=== PATIENT | female | born 1960 | race Caucasian/White ===

== ENCOUNTER 2024-05-06 07:03 | Emergency (ER) | payer MEDICARE, OTHER ==
[~2024-05-06] VITALS: Ht 170.2 cm; Wt 104.5 kg
[2024-05-06] MEDS ORDERED: SYNT125T PO (07:14)
[2024-05-06] MEDS: ONDANSETRON 4MG ORAL DISINTEGRATING TAB PO ONE (07:24)
[2024-05-06] MEDS: NS 500 ML IV ONE (11:05)
[2024-05-06 12:02] LABS: BASO % 0.1 % (0.0-1.0); HEMATOCRIT 44.9 % (36.0-47.0); HEMOGLOBIN 15.3 g/dl (12.0-15.5); LYMPH # 0.4 10^3/uL (1.5-5.0); LYMPH % 4.3 % (24.0-44.0); MEAN CORPUSCULAR HEMOGLOBIN 32.5 pg (27.0-33.0); MEAN CORPUSCULAR HGB CONC 34.1 g/dl (32.0-36.5); MEAN CORPUSCULAR VOLUME 95.3 fl (80.0-96.0); MONO # 0.4 10^3/uL (0.0-0.8); MONO % 4.1 % (2.0-8.0); NEUTROPHILS # 8.7 10^3/uL (1.5-8.5); NEUTROPHILS % 91.3 % (36.0-66.0); PLATELET COUNT, AUTOMATED 220 10^3/uL (150-450); RED BLOOD COUNT 4.71 10^6/uL (4.00-5.40); WHITE BLOOD COUNT 9.6 10^3/uL (4.0-10.0)
[2024-05-06 12:29] LABS: LIPASE 23 U/L (12-53)
[2024-05-06 12:31] LABS: ALBUMIN 3.4 G/DL (3.2-5.2); ALKALINE PHOSPHATASE 70 U/L (35-104); ALT/SGPT 18 U/L (7.0-40); AST/SGOT 16 U/L (<34); BILIRUBIN,DIRECT 0.3 MG/DL (<0.4); BLOOD UREA NITROGEN 26 MG/DL (9-23); CALCIUM LEVEL 8.9 MG/DL (8.3-10.6); CARBON DIOXIDE LEVEL 30 MMOL/L (20-31); CHLORIDE LEVEL 101 MMOL/L (98-107); CREATININE FOR GFR 0.77 MG/DL (0.55-1.30); GLOMERULAR FILTRATION RATE > 60.0 (>45); GLUCOSE, FASTING 123 MG/DL (74-106); POTASSIUM SERUM 3.2 MMOL/L (3.5-5.1); SODIUM LEVEL 139 MMOL/L (136-145); TOTAL PROTEIN 7.3 G/DL (5.7-8.2)
[2024-05-06] MEDS: ONDANSETRON 4MG 2ML VIAL IV ONE (12:31)
[2024-05-06] MEDS ORDERED: ONDA-282 PO (13:10)
[2024-05-06] MEDS: POTASSIUM CHLORIDE 10MEQ SR TABLET PO ONE (13:15)
[2024-05-06 13:24] VITALS: BP 114/65; TEMP 97.8; O2SAT 95
== END 2024-05-06 13:34 | disposition home or self-care (01) ==
LOC: M ED 07:03
DX: A09 Infectious gastroenteritis and colitis, unspecified (principal); E86.0 Dehydration; R11.2 Nausea with vomiting, unspecified; E78.5 Hyperlipidemia, unspecified; E03.9 Hypothyroidism, unspecified; Z79.899 Other long term (current) drug therapy
CPT/HCPCS: 80048; 80076; 83690; 85025; 87486; 87581; 87633; 87798; 96361; 96374; 99284; J2405